=== PATIENT | female | born 1975 | race Two or more races ===

== ENCOUNTER 2024-05-18 11:01 | Emergency (ER) | payer OTHER ==
[~2024-05-18] VITALS: Ht 157.5 cm; Wt 68.9 kg
[2024-05-18 11:10] VITALS: BP 117/69; TEMP 98.3
[2024-05-18] MEDS ORDERED: IBUP-1490 PO (11:20)
[2024-05-18 11:34] VITALS: O2SAT 98
== END 2024-05-18 11:35 | disposition home or self-care (01) ==
LOC: ER 11:11
DX: S20.01XA Contusion of right breast, initial encounter (principal); N64.4 Mastodynia; R07.89 Other chest pain; V43.52XA Car driver injured in collision with other type car in traffic accident, initial encounter; Y93.89 Activity, other specified; Y92.488 Other paved roadways as the place of occurrence of the external cause; Y99.8 Other external cause status